=== PATIENT | female | born 1960 | race Hispanic/Latino ===

== ENCOUNTER → 2024-09-14 | Outpatient (CLI) | payer MEDICAID ==
--- NOTE | 2024-09-14 10:05 | HMCIMG ---
US ABDOMEN CMP W DOPPLERS HISTORY: Primary biliary cirrhosis COMPARISON: None TECHNIQUE: Multiple transverse and longitudinal ultrasound images of the abdomen were obtained. Abdominal Doppler ultrasound study was also obtained. FINDINGS: Abdominal aorta and inferior vena cava are unremarkable. The visualized portion of the pancreas is within normal limits. Liver measures 11.7 cm. Liver is echogenic consistent with liver parenchymal disease. Gallstones are seen in the gallbladder. Common duct measures 5 mm. No evidence of gallbladder wall thickening is seen. Both kidneys are seen. Right kidney measures 10.6 x 5.1 x 4.4 cm. Left kidney measures 10.4 x 4.4 x 4.7 cm. No hydronephrosis is seen of the both kidneys. The spleen is grossly unremarkable. Abdominal Doppler ultrasound study was performed. The portal vein is patent with hepatopedal flow with flow velocity of 36 cm/s. Flow velocity for left hepatic vein is 16 cm/s, middle hepatic vein is 25 cm/s, right hepatic vein is 21 cm/s and splenic vein is 35 cm/s. Hepatic artery is patent with peak systolic velocity of 116 cm/s and resistive index of 0.79. IMPRESSION: 1. Gallstones. No ductal dilatation is seen. 2. No hydronephrosis is seen. 3. Unremarkable abdominal Doppler ultrasound study.
== END | disposition home or self-care (01) ==
LOC: RAH 07:35
PROVIDERS: ATTEND Internal Medicine Gastroenterology
DX: K80.20 Calculus of gallbladder without cholecystitis without obstruction (principal); K74.3 Primary biliary cirrhosis
CPT/HCPCS: 76700; 93975